=== PATIENT | female | born 1990 | race African-American/Black ===

== ENCOUNTER 2017-05-11 11:26 | Emergency (ER) | payer OTHER ==
[2017-05-11 11:27] VITALS: BP 130/84; PULSE 80; RESP 20; TEMP 98.3; O2SAT 98
[2017-05-11 12:40] LABS: BACTERIA, URINE OCC /hpf; BLOOD, URINE NEG (NEG); COMMENT (UR) CULT NOT INDICATED; CULTURE IF INDICATED CULT NOT INDICATED; GLUCOSE,URINE NEG (NEG); KETONE, URINE 10 mg/dL (NEG); MUCUS URINE FEW /lpf (OCC); NITRITE,URINE NEG (NEG); SQUAMOUS EPITHELIAL CELL URINE 6 /hpf (0-5); URINE COLOR YELLOW (YELLW/STRAW)
[2017-05-11] MEDS ORDERED: AZITHROMYCIN PWD FOR SUSP 1 GM PACKET PO ONE (14:15)
[2017-05-11] MEDS ORDERED: LIDOCAINE HCL 1% 50 ML VIAL IM ONE (14:15)
[2017-05-11] MEDS ORDERED: cefTRIAXone 250 MG VIAL IM ONE (14:15)
--- NOTE | 2017-05-11 16:11 | PD ---
HPI Chief Complaint: Project Mgr Problem/Complaint Time Seen by Provider: 13:36 Travel History International Travel<30 days: No Contact w/Intl Traveler<30days: No Traveled to known affect area: No History of Present Illness HPI Patient is a 26-year-old female who comes in because she wants to be checked for STDs. She reports having unprotected sex, and gets herself tested routinely. She says she just moved here, and does not have a doctor. She did [facility] to go [facility], and they told her to come to the emergency department. She says she has some vaginal irritation, but denies any other complaints at this time. [facility] Past Medical History Medical History: Denies Significant Hx Diminished Hearing: No Immunizations Current: Yes Tetanus Vaccination: < 5 Years Influenza Vaccination: No ?: Not Past Surgical History Surgical History: No Previous Surgery Social History Alcohol Use: Yes (socially ) Tobacco Use: Yes (QUIT 02/2017) Substance Use: Yes (MARIJUANA) Allergies-Medications (Allergen,Severity, Reaction): Coded Allergies: No Known Allergies (Unverified , 05/11/17) Reported Meds & Prescriptions Reported Meds & Active Scripts Active No Active Prescriptions or Reported Medications Review of Systems Except as stated in HPI: all other systems reviewed are Neg General / Constitutional: No: Fever, Chills HENT: No: Headaches, Lightheadedness Cardiovascular: No: Chest Pain or Discomfort Respiratory: No: Shortness of Breath Gastrointestinal: No: Nausea, Vomiting, Abdominal Pain Genitourinary: No: Dysuria, Discharge Musculoskeletal: No: Myalgias Skin: No Rash, No Change in Pigmentation Neurologic: No: Weakness, Dizziness Physical Exam Narrative GENERAL: Awake and alert, in no acute distress. SKIN: Focused skin assessment warm/dry. HEAD: Atraumatic. Normocephalic. EYES: Pupils equal and round. No scleral icterus. ENT: No nasal bleeding or discharge. Mucous membranes pink and moist. NECK: Trachea midline. No JVD. CARDIOVASCULAR: Regular rate and rhythm. No murmur appreciated. RESPIRATORY: No accessory muscle use. Clear to auscultation. Breath sounds equal bilaterally. GASTROINTESTINAL: Abdomen soft, non-tender, nondistended. : Exam performed in the presence of a female nurse. Thick white discharge present. No CMT. No cervical lesions. MUSCULOSKELETAL: No obvious deformities. No clubbing. No cyanosis. No edema. NEUROLOGICAL: Awake and alert. No obvious cranial nerve deficits. Motor grossly within normal limits. Normal speech. PSYCHIATRIC: Appropriate mood and affect; insight and judgment normal. Data Data Last Documented VS Vital Signs Date Time Temp Pulse Resp B/P Pulse Ox O2 Delivery O2 Flow Rate FiO2 05/11/17 11:27 98.3 80 20 130/84 98 Room Air Orders Urinalysis - C+S If Indicated (05/11/17 11:42) Ed Urine Pregnancytest Poc (05/11/17 11:42) Wet Prep Profile (05/11/17 13:49) Gc And Chlamydia Pcr (05/11/17 13:49) Azithromycin Powd Pack (Zithromax Powd P (05/11/17 14:15) Ceftriaxone Inj (Rocephin Inj) (05/11/17 14:15) Lidocaine 1% Inj (50 Ml) (Xylocaine 1% I (05/11/17 14:15) Labs Laboratory Tests Test 05/11/17 05/11/17 11:50 14:10 Urine Color YELLOW Urine Turbidity CLEAR Urine pH 6.0 Urine Specific [place] 1.024 Urine Protein TRACE mg/dL Urine Glucose (UA) NEG mg/dL Urine Ketones 10 mg/dL Urine Occult Blood NEG Urine Nitrite NEG Urine Bilirubin NEG Urine Urobilinogen LESS THAN 2.0 MG/DL Urine Leukocyte Esterase SMALL Urine RBC 2 /hpf Urine WBC 3 /hpf Urine Squamous Epithelial 6 /hpf Cells Urine Bacteria OCC /hpf Urine Mucus FEW /lpf Microscopic Urinalysis Comment CULT NOT INDICATED Clue Cells (Wet Prep) NONE SEEN Vaginal Trichomonas (Wet Prep) NONE SEEN Vaginal Yeast (Wet Prep) NONE SEEN Chlamydia trachomatis DNA NOT DETECTED (PCR) Neisseria gonorrhoeae DNA NOT DETECTED (PCR) MDM Medical Decision Making Medical Screen Exam Complete: Yes Emergency Medical Condition: Yes Differential Diagnosis GC and chlamydia versus bacterial vaginosis versus UTI Narrative Course Patient is a 26-year-old female who comes in because she wants to be checked for STDs. Exam shows a thick white discharge. Patient offered treatment for gonorrhea and chlamydia, and would like that at this time. Given Rocephin and azithromycin. Swab sent check for gonorrhea and chlamydia. Wet prep performed shows no acute abnormalities. Patient advised to use protection during intercourse. Advised follow-up with the health department. Advised to return to the emergency department as needed for any worsening symptoms. Diagnosis Primary Impression: Vaginal discharge Patient Instructions: General Instructions, Vaginal Discharge (ED) Additional Instructions: Follow-up with gynecology or the health department. Return to the ED as needed for any worsening symptoms. Use protection during sexual intercourse. Scripts No Active Prescriptions or Reported Meds Disposition: 01 DISCHARGE HOME Condition: Stable Romy Clay MD May 11, 2017 16:11
[2017-05-11 16:53] LABS: CHLAMYDIA PCR NOT DETECTED (NOT DETECT); NEISSERIA PCR NOT DETECTED (NOT DETECT)
== END 2017-05-11 16:58 | disposition home or self-care (01) ==
LOC: NEPD 11:26
DX: N89.8 Other specified noninflammatory disorders of vagina (principal); Z87.891 Personal history of nicotine dependence
CPT/HCPCS: 81001; 84703; 87210; 87491; 87591; 96372; 99284; J0696